=== PATIENT | female | born 1965 | race Two or more races ===

== ENCOUNTER → 2024-09-30 16:08 | Outpatient (REF) | payer OTHER, SELFPAY | LOC: HWRAD 16:08 | PROVIDERS: ATTENDING PHYSICIAN Nurse Practitioner Family | DX: M54.50 Low back pain, unspecified (principal) | CPT/HCPCS: 72110 ==

== ENCOUNTER → 2024-10-01 06:00 | Outpatient (REF) | payer OTHER, SELFPAY ==
[2024-10-01 10:21] LABS: % Basophils 0.6 % (0-2); % Eosinophils 0.8 % (0-6); % Immature Granulocytes 0.2 % (0-0.5); % Monocytes 7.7 % (1.7-9.3); % Neutrophils 61.7 % (42.2-75.2); Absolute Lymphocytes 1.5 10^3/uL (1.2-3.4); Absolute Monocytes 0.4 10^3/uL (0.1-0.6); Absolute Neutrophils 3.1 10^3/uL (1.4-6.5); Hemoglobin 12.3 g/dL (12.0-16.0); Mean Corp Hgb Conc. 34.2 g/dL (33.0-37.0); Mean Corpuscular Hgb 32.5 pg (27.0-31.0); Mean Platelet Volume 9.8 fL (7.4-10.4); Nucleated Red Blood Cells % 0 %; Platelet Count 382 10^3/uL (130-400); Red Blood Cell Count 3.79 10^6/uL (4.20-5.40); Red Cell Dist. Width 12.8 % (11.5-14.5); White Blood Cell Count 5.1 10^3/uL (4.8-10.8)
[2024-10-01 11:55] LABS: ALT (SGPT) 22 U/L (0-35); AST (SGOT) 27 U/L (14-36); Albumin 4.7 g/dl (3.5-5.0); Alkaline Phosphatase 73 U/L (38-126); Blood Urea Nitrogen 21 mg/dl (7-17); Calcium 9.6 mg/dl (8.4-10.2); Carbon Dioxide 25 mmol/L (22-30); Chloride 109 mmol/L (98-107); Glucose 108 mg/dl (70-99); HDL Cholesterol 62 mg/dl; LDL Cholesterol, Calculated 164 mg/dl; Potassium 4.3 mmol/L (3.5-5.1); Sodium 142 mmol/L (135-145); Total Bilirubin 0.6 mg/dl (0.2-1.3); Total Cholesterol 261 mg/dl (50-199); Total Protein 7.8 g/dl (6.3-8.2); Triglyceride 178 mg/dl (10-149); Very Low Density Lipoprotein 35 mg/dl (0-30); eGFR > 60.00
[2024-10-01 11:56] LABS: FSH 38.2 mIU/ml; Progesterone 0.61 ng/ml
[2024-10-01 12:10] LABS: TSH Reflex To Free T4 2.85 uIU/ml (0.47-4.68)
[2024-10-01 12:11] LABS: Estradiol 8.4 pg/ml
== END ==
LOC: HWLAB 06:00
PROVIDERS: ATTENDING PHYSICIAN Nurse Practitioner Family
DX: K21.9 Gastro-esophageal reflux disease without esophagitis (principal); M54.50 Low back pain, unspecified; E66.9 Obesity, unspecified
CPT/HCPCS: 36415; 80053; 80061; 82670; 83001; 83002; 84144; 84443; 85025

== ENCOUNTER → 2024-10-16 10:20 | Outpatient (REF) | payer OTHER, SELFPAY | LOC: HWRAD 10:20 | PROVIDERS: ATTENDING PHYSICIAN Nurse Practitioner Family | DX: Z78.0 Asymptomatic menopausal state (principal); R14.0 Abdominal distension (gaseous) | CPT/HCPCS: 76830; 76856 ==

== ENCOUNTER → 2025-01-14 14:24 | Outpatient (REF) | payer OTHER, SELFPAY | LOC: DHSLP 14:24 | PROVIDERS: ATTENDING PHYSICIAN Internal Medicine; FAMILY PHYSICIAN Nurse Practitioner Family | DX: G47.33 Obstructive sleep apnea (adult) (pediatric) (principal); R09.02 Hypoxemia | CPT/HCPCS: 95800 ==

== ENCOUNTER 2025-03-03 06:21 | Day surgery (SDC) | payer OTHER, SELFPAY | END 2025-03-03 10:37 | disposition home or self-care (01) | LOC: GI 06:21 | PROVIDERS: ATTENDING PHYSICIAN Internal Medicine Gastroenterology | DX: Z12.11 Encounter for screening for malignant neoplasm of colon (principal); D12.2 Benign neoplasm of ascending colon; K57.30 Diverticulosis of large intestine without perforation or abscess without bleeding; K64.8 Other hemorrhoids; K44.9 Diaphragmatic hernia without obstruction or gangrene; K29.80 Duodenitis without bleeding; K31.89 Other diseases of stomach and duodenum; Z86.0100 Personal history of colon polyps, unspecified; Z13.810 Encounter for screening for upper gastrointestinal disorder | CPT/HCPCS: 45380; 43239; 88305; 88342 ==